=== PATIENT | female | born 1960 | race Caucasian/White ===

== ENCOUNTER 2016-09-17 12:03 | Emergency (ER) | payer BC ==
[~2016-09-17] VITALS: Ht 167.6 cm; Wt 66.0 kg
[2016-09-17 12:04] VITALS: BP 154/74; PULSE 90; RESP 20; TEMP 97.4; O2SAT 95
--- NOTE | 2016-09-17 12:14 | PD ---
Physical Exam Date Seen by Provider: Sep 17, 2016 Time Seen by Provider: 12:10 Narrative Pt is a 56 year old female presenting to the ED with c/o chest pain. Started a few days ago, radiates across chest and around back. Pain is not constant. No alleviating or exacerbating factors. Reports pain 8/10. Pt reports extreme nausea, no vomiting. PMHx of mitral valve prolapse. Pain came on slowly a few days ago and has steadily gotten worse. PCP in [facility]. Pt reports SOB, fatigue. VSS, awaiting bed placement. Protocol initiated. Data Data Last Documented VS Vital Signs Date Time Temp Pulse Resp B/P Pulse Ox O2 Delivery O2 Flow Rate FiO2 09/17/16 12:04 97.4 90 20 154/74 95 Room Air [facility] Supervised Visit with KATHY: Irene Grant Sep 17, 2016 12:14
[2016-09-17 12:57] LABS: AUTOMATED NEUTROPHIL # 2.4 TH/MM3 (1.8-7.7); BASOPHIL # 0.1 TH/MM3 (0-0.2); BASOPHIL % 1.1 % (0.0-2.0); EOSINOPHIL # 0.1 TH/MM3 (0-0.4); HEMATOCRIT 39.3 % (35.0-46.0); HEMO FLAGS DIFF FINAL; LYMPH % 39.9 % (9.0-44.0); LYMPHOCYTE # 1.9 TH/MM3 (1.0-4.8); MEAN CELL VOLUME 96.1 FL (80.0-100.0); MEAN CORPUSCULAR HEMOGLOBIN 34.2 PG (27.0-34.0); MEAN CORPUSCULAR HGB CONC 35.6 % (32.0-36.0); MONO % 9.3 % (0.0-8.0); NEUT % 48.7 % (16.0-70.0); PLATELET COUNT 204 TH/MM3 (150-450); RED BLOOD COUNT 4.09 MIL/MM3 (4.00-5.30); RED CELL DISTRIBUTION WIDTH 12.1 % (11.6-17.2); WHITE BLOOD COUNT 4.9 TH/MM3 (4.0-11.0)
[2016-09-17 13:01] LABS: APTT (PATIENT) 27.1 SEC (24.3-30.1); PROTHROMBIN TIME - PATIENT 10.7 SEC (9.8-11.6)
[2016-09-17 13:23] LABS: ALKALINE PHOSPHATASE 69 U/L (45-117); ALT (GPT) 36 U/L (10-53); ANION GAP 10 MEQ/L (5-15); AST (GOT) 34 U/L (15-37); BICARBONATE 25.5 MEQ/L (21.0-32.0); BLOOD UREA NITROGEN 16 MG/DL (7-18); CHLORIDE 102 MEQ/L (98-107); CREATINE KINASE 103 U/L (26-192); GLOMERULAR FILTRATION RATE 77 ML/MIN (>89); MAGNESIUM 1.9 MG/DL (1.5-2.5); SODIUM (NA) 137 MEQ/L (136-145); TOTAL BILIRUBIN ADULT 0.4 MG/DL (0.2-1.0)
[2016-09-17 13:29] LABS: POTASSIUM 4.2 MEQ/L (3.5-5.1)
--- NOTE | 2016-09-17 13:29 | RADRPT ---
EXAM DATE/TIME: 09/17/2016 12:45 [place] COMPARISON: No previous studies available for comparison. INDICATIONS : Chest pain. MEDICAL HISTORY : None. SURGICAL HISTORY : None. ENCOUNTER: Initial ACUITY: 3 days PAIN SCORE: 7/10 LOCATION: Left chest FINDINGS: PA and lateral views of the chest demonstrate the lungs to be symmetrically aerated without evidence of mass, infiltrate or effusion. The cardiomediastinal contours are unremarkable. Osseous structure s are intact. CONCLUSION: No acute cardiopulmonary disease. Boy Harrell MD on September 17, 2016 at 13:28 Board Certified Radiologist. This report was verified electronically.
[2016-09-17 13:41] LABS: CKMB 1.5 NG/ML (0.5-3.6)
[2016-09-17] MEDS ORDERED: FAMOTIDINE 20 MG/2 ML VIAL IV PUSH ONE (15:15)
[2016-09-17] MEDS ORDERED: ALUMINUM/MAGNESIUM/SIMETH 30 ML CUP PO ONE (15:15)
[2016-09-17] MEDS ORDERED: LIDOCAINE VISCOUS 2% SOLN 15 ML UDC PO ONE (15:15)
--- NOTE | 2016-09-17 16:08 | PD ---
HPI Chief Complaint: Chest Pain Time Seen by Provider: 16:00 Travel History International Travel<30 days: No Contact w/Intl Traveler<30days: No Traveled to known affect area: No History of Present Illness HPI 56-year-old female that presents to the ED for evaluation of chest pain. Patient reports that she's had chest pain for about 2-3 days. Per patient is burning and some nausea and vomiting. Per patient initially she doesn't really heartburn she's been taking some medications for it with no relief. Per patient the chest pain has not improved it comes and goes. Per patient she does have a history of mitral regurgitation and follows up closely with her after school program coordinator in [place]. She states that she's been taking her medications as prescribed by her doctor. She doesn't really take anything other than ibuprofen on and off. She denies any history of high cholesterol or diabetes. She denies any history of heart attack. She is here visiting from [place]. She states that the pain is 6 out of 10. Has no allergies to medication. No shortness of breath and or abdominal pain. No trauma. Denies any urinary or bowel movement issues. She has any fevers chills or sweats. No cough or runny nose. She came here by car. She denies taking any estrogen. No history of blood clots. [facility] Past Medical History Cardiovascular Problems: Yes (mitral valve prolapse, chest pain prior, not recalled) Respiratory: No (non smoker) Tetanus Vaccination: Unknown Influenza Vaccination: No ?: Not Ectopic : Yes Past Surgical History Gynecologic Surgery: Yes (RIGHT FALLOPIAN TUBE REMOVED) Tonsillectomy: Yes Social History Alcohol Use: Yes (OCCASIONALLY ) Tobacco Use: No Substance Use: No Allergies-Medications (Allergen,Severity, Reaction): Coded Allergies: No Known Allergies (Unverified , 09/17/16) Review of Systems Except as stated in HPI: all other systems reviewed are Neg Physical Exam Narrative GENERAL: SKIN: Warm and dry. HEAD: Atraumatic. Normocephalic. EYES: Pupils equal and round. No scleral icterus. No injection or drainage. ENT: No nasal bleeding or discharge. Mucous membranes pink and moist. Tongue is midline. No uvula deviation. NECK: Trachea midline. No JVD. CARDIOVASCULAR: Regular rate and rhythm. No murmurs, S3, S4 noted by me. RESPIRATORY: No accessory muscle use. Clear to auscultation. Breath sounds equal bilaterally. GASTROINTESTINAL: Abdomen soft, non-tender, nondistended. Hepatic and splenic margins not palpable. MUSCULOSKELETAL: Extremities without clubbing, cyanosis, or edema. No obvious deformities. Full range of motion of the upper and lower extremity is bilaterally. Chest pain not reproducible with touch. 2+ pulses bilaterally. NEUROLOGICAL: Awake and alert. No obvious cranial nerve deficits. Motor grossly within normal limits. Five out of 5 muscle strength in the arms and legs. Normal speech. PSYCHIATRIC: Appropriate mood and affect; insight and judgment normal. Data Data Last Documented VS Vital Signs Date Time Temp Pulse Resp B/P Pulse Ox O2 Delivery O2 Flow Rate FiO2 09/17/16 15:36 80 18 09/17/16 12:04 97.4 154/74 95 Room Air Orders Electrocardiogram (09/17/16 12:14) Ckmb (Isoenzyme) Profile (09/17/16 12:14) Complete Blood Count With Diff (09/17/16 12:14) Comprehensive Metabolic Panel (09/17/16 12:14) Magnesium (Mg) (09/17/16 12:14) Prothrombin Time / Inr (Pt) (09/17/16 12:14) Act Partial Throm Time (Ptt) (09/17/16 12:14) Troponin I (09/17/16 12:14) Chest, Pa & Lat (09/17/16 12:14) CKMB (09/17/16 10:22) CKMB% (09/17/16 10:22) D-Dimer (09/17/16 14:58) Electrocardiogram (09/17/16 14:58) Troponin I (09/17/16 14:58) Famotidine Inj (Pepcid Inj) (09/17/16 15:15) Al-Mag Hy-Si 40-40-4 Mg/Ml Liq (Mag-Al P (09/17/16 15:15) Lidocaine 2% Viscous (Xylocaine 2% Visco (09/17/16 15:15) Labs Laboratory Tests Test 09/17/16 09/17/16 09/17/16 10:22 15:00 15:50 White Blood Count 4.9 TH/MM3 Red Blood Count 4.09 MIL/MM3 Hemoglobin 14.0 GM/DL Hematocrit 39.3 % Mean Corpuscular Volume 96.1 FL Mean Corpuscular Hemoglobin 34.2 PG Mean Corpuscular Hemoglobin 35.6 % Concent Red Cell Distribution Width 12.1 % Platelet Count 204 TH/MM3 Mean Platelet Volume 7.8 FL Neutrophils (%) (Auto) 48.7 % Lymphocytes (%) (Auto) 39.9 % Monocytes (%) (Auto) 9.3 % Eosinophils (%) (Auto) 1.0 % Basophils (%) (Auto) 1.1 % Neutrophils # (Auto) 2.4 TH/MM3 Lymphocytes # (Auto) 1.9 TH/MM3 Monocytes # (Auto) 0.5 TH/MM3 Eosinophils # (Auto) 0.1 TH/MM3 Basophils # (Auto) 0.1 TH/MM3 CBC Comment DIFF FINAL Differential Comment Prothrombin Time 10.7 SEC Prothromb Time International 1.0 RATIO Ratio Activated Partial 27.1 SEC Thromboplast Time Sodium Level 137 MEQ/L Potassium Level 4.2 MEQ/L Chloride Level 102 MEQ/L Carbon Dioxide Level 25.5 MEQ/L Anion Gap 10 MEQ/L Blood Urea Nitrogen 16 MG/DL Creatinine 0.78 MG/DL Estimat Glomerular Filtration 77 ML/MIN Rate Random Glucose 97 MG/DL Calcium Level 8.5 MG/DL Magnesium Level 1.9 MG/DL Total Bilirubin 0.4 MG/DL Aspartate Amino Transf 34 U/L (AST/SGOT) Alanine Aminotransferase 36 U/L (ALT/SGPT) Alkaline Phosphatase 69 U/L Total Creatine Kinase 103 U/L Creatine Kinase MB 1.5 NG/ML Troponin I LESS THAN 0.02 LESS THAN 0.02 NG/ML NG/ML Total Protein 7.0 GM/DL Albumin 3.9 GM/DL D-Dimer Quantitative (PE/DVT) 0.20 MG/L [facility] Medical Decision Making Medical Screen Exam Complete: Yes Emergency Medical Condition: Yes Medical Record Reviewed: Yes Interpretation(s) CBC & BMP Diagram 09/17/16 10:22 First and second troponin were negative. EKG show no sign of acute ischemia or arrhythmia read by me and attending. Last Impressions Chest X-Ray 09/17/16 1214 Signed Impressions: Service Date/Time: Saturday, September 17, 2016 12:45 - CONCLUSION: No acute cardiopulmonary disease. Boy Harrell MD ddimmer 0.20 Differential Diagnosis Chest pain versus atypical chest pain versus DVT versus PE versus costochondritis Narrative Course 56-year-old female that presents to the ED for evaluation of chest pain. Patient was properly examined and was found to have signs and symptoms consistent appears to be chest pain. Concerning for ACS. Patient had lab work and imaging performed at triage. Elevate has been resulted and is negative. Because of patient's recent travel and a typical symptoms d-dimer was ordered to make sure patient does not have a blood clot. I also added a second troponin and an EKG. If this is negative I do not feel that the patient requires admission as she does follow up closely with her after school program coordinator and she prefers going with the after school program coordinator. She was offered admission to the chest pain center but she declines at this time stating that she will rather follow up with her after school program coordinator in [place]. Second troponin and EKG show no sign of ischemia. At this time I believe the patient has been rule out. She understands that I cannot completely told her that she doesn't have a cardiac problem with having stress test. She understands. She understands reasons to come back. D-dimer was negative as well. No sign of DVT. Patient was reassured. This time I recommend aspirin. Motrin or Tylenol for pain. Antiacids as needed. Follow with after school program coordinator when she gets home. See ED worsening symptoms. Diagnosis Primary Impression: Atypical chest pain Patient Instructions: General Instructions Additional Instructions: Take an aspirin every day. Follow up with after school program coordinator. See ED for any worsening symptoms. Med/Other Pt SpecificInfo: No Change to Meds Disposition: 01 DISCHARGE HOME Condition: Stable Deangelo Sandhu Sep 17, 2016 16:08
[2016-09-17 17:00] VITALS: BP 137/71; PULSE 92; RESP 20; TEMP 97.4; O2SAT 95
--- NOTE | 2016-09-18 13:56 | EKG ---
Date Performed: 09/17/2016 Time Performed: 12:20:25 PTAGE: 56 years EKG: Sinus rhythm POSSIBLE LEFT ATRIAL ENLARGEMENT BORDERLINE ECG Cannot rule out old inferior infarction NO PREVIOUS TRACING DOCTOR: Cruz Dey Interpretating Date/Time 09/18/2016 13:55:08
== END 2016-09-17 17:37 | disposition home or self-care (01) ==
LOC: NEPC 12:03
DX: R07.89 Other chest pain (principal); R11.2 Nausea with vomiting, unspecified; I34.1 Nonrheumatic mitral (valve) prolapse
CPT/HCPCS: 71020; 80053; 82550; 82552; 83735; 84484; 85025; 85379; 85610; 85730; 93005; 96374